=== PATIENT | male | born 2000 | race Caucasian/White ===

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

== ENCOUNTER 2020-07-19 16:45 | Observation (INO) ==
[2020-07-19] MEDS ORDERED: SODIUM CHLORIDE 0.9% 1000ML 1,000 ML IV SCH (17:30)
[2020-07-19] MEDS ORDERED: fentaNYL citrate 100 MCG/2 ML VIAL IV PRN ×2 (17:42→19:22)
[2020-07-19] MEDS ORDERED: ONDANSETRON INJ 2 MG/ML 2 ML VIAL IV STA (17:42)
--- NOTE | 2020-07-19 17:48 | Emergency Department Note ---
Impression & Plan Appendicitis, Acute abdominal pain in right lower quadrant ED Provider Note NAME: DOLORES CARDENAS AGE: 20 SEX: M : 2000 ARRIVES VIA: Walk-In INFORMANT: Patient, ED PROVIDER(S): Andre Maxwell DO CHIEF COMPLAINT: Right-sided abdominal pain HPI: The patient is a 20-year-old male who presented to the emergency department for an evaluation of right side abdominal pain. The patient started having right-sided abdominal pain over the course of the last week. The patient has been having intermittent symptoms over the last few months but his pain became constant over the last week. He now notices pain in the right lower quadrant. The patient was seen by his primary care physician and was set up for a CT the abdomen and pelvis. He was instructed to return to the emergency department because of an abnormal CT. The patient denies having any fever. He denies having any dysuria or frequency. He denies having any lower extremity swelling or pain. The patient denies having any fever. He is had no cough or recent t ravel. ROS: See above HPI for pertinent positives & negatives. A total of 10 systems reviewed and were otherwise negative. PAST MEDICAL HISTORY: See Below PAST SURGICAL HISTORY: See Below FAMILY HISTORY: See Below SOCIAL HISTORY: See Below HOME MEDICATIONS: See Below ALLERGIES: See Below VITALS: See Below PHYSICAL EXAMINATION: GENERAL: Patient is awake alert in no acute distress patient is resting comfortably and showing no signs of anxiety EYES: The conjunctivae are clear. The pupils are round and reactive. EARS, NOSE, MOUTH AND THROAT: The nose is without any evidence of any deformity. Mucous membranes are moist. Tongue is midline. NECK: The neck is nontender and supple. RESPIRATORY: Normal respiratory effort is noted there is no evidence of wheezing rhonchi or rales CARDIOVASCULAR: Regular rate and rhythm noted there no murmurs rubs or gallops normal S1 normal S2. GASTROINTESTINAL: The abdomen is mildly distended but soft. There is guarding in the right lower quadrant MUSCULOSKELETAL/EXTREMITIES: There is no evidence of gross deformity full range of motion is noted in the hips and shoulders. SKIN: There is no obvious evidence of any rash. There are no petechiae, pallor or cyanosis noted. NEUROLOGIC: Patient is awake alert and oriented x3. MEDICAL DECISION MAKING: The patient is a 20-year-old male who presented to the emergency department for an evaluation of abdominal pain. Patient was having right-sided abdominal pain over the last few days. He does have some chronic lower abdominal pain however this appears to be worse in location as well as duration according the patient. For this reason he saw his primary care physician and was sent for a CT of the abdomen and pelvis. The CT appeared to be consistent with acute appendicitis so he was sent to the emergency department for further evaluation. I did review the patient's CT. The CT was suggestive of acute appendicitis however on physical exam he did have guarding in the right lower quadrant. He did not have a fever or an elevated white blood cell count however because of his clinical findings as well as his radiographic findings I discussed his case with the on- call general surgeon. He was evaluated in the emergency department by the general surgeon. He was treated with IV fluids and IV pain medication by myself. He was feeling much better on subsequent reevaluation. Triage Nursing notes reviewed. Prior medical records reviewed Vital Signs: reviewed and remarkable for elevated blood pressure. Differential diagnosis: Etiologies such as appendicitis, diverticulitis, obstruction, inflammatory bowel disease, renal colic, PUD, biliary pathology, pancreatitis, mesenteric ischemia, aortic pathology, infections, genitourinary, UTI, perforated viscus, as well as others were entertained. ER treatment provided: See below Diagnostics interpreted by me: ECG: none Cardiac Monitoring: An order was placed for continuous cardiac monitoring. The monitor shows a rate of 88 beats per minute with sinus rhythm. Laboratory studies: As stated above and show below. Imaging studies: See below Consultation(s): 1740: The case was discussed with Dr. Burgess who is on-call for general surgery. Past Med/Surg History Medical History Acid reflux Hidradenitis suppurativa Lower abdominal pain Nausea Surgical History No pertinent past surgical history Family History Mother Dyslipidemia GERD (gastroesophageal reflux disease) Deafness in left ear Father GERD (gastroesophageal reflux disease) Diabetes Grandfather Diabetes Sister Raynauds syndrome Scoliosis Grandmother Raynauds syndrome Family/Other Breast cancer Grandfather Myocardial infarction Other Kidney stone Social History Smoking Status: Never smoker Second Hand Exposure: No; Do You Dip or Chew Tobacco: No; Tobacco Cessation Education Requested by Patient: No Hx Alcohol Use: Yes Alcohol type: beer, wine and hard liquor Hx Substance Use: No Preferred Language: Filipino Communication Ability: Effective Stripping Shovel Oiler Required: No Beliefs That Will Affect Care: None Current Living Situation: Family Other Information That Helps Us Care for You: No Feels Safe at Home: Yes Safety Concerns: Feels Safe At This Time Assistive Devices: Contacts Allergies Allergies Allergy/AdvReac Type Severity Reaction Status Date / Time No Known Allergies Allergy NKA Verified 07/18/20 09:35 Home Meds Home Medications Medication Instructions Recorded Confirmed loratadine 10 mg tablet 10 mg PO DAILY 06/25/19 07/19/20 Previous Rx's Medication Instructions Recorded pantoprazole 40 mg tablet,delayed 40 mg PO DAILY #90 tab 05/24/20 release Results & Data (ED) Vital Signs Vital Signs - 24 hr 07/19/20 16:47 07/19/20 17:53 07/19/20 18:25 Temperature 36.7 C Temperature Source Oral Pulse Rate 85 78 Pulse Rate [Apical] Pulse Rhythm [Apical] Pulse Strength [Apical] Respiratory Rate 18 22 Respiratory Effort / Characteristics Non-Labored Respiratory Depth Normal Respiratory Pattern Blood Pressure 153/94 H 160/108 H Blood Pressure [Left Arm] Blood Pressure Mean 113 114 Blood Pressure Mean [Left Arm] Blood Pressure Position [Left Arm] Pulse Oximetry 99 99 Oxygen Delivery Method Room Air Room Air Oxygen Flow Rate Sepsis Recent Fever Within 48 Hours No Sepsis New/Unexplained Change in Mental Status N/A Sepsis Action Taken by Nursing No Action Required 07/19/20 18:29 07/19/20 18:30 07/19/20 19:00 Temperature Temperature Source Pulse Rate 74 71 62 Pulse Rate [Apical] Pulse Rhythm [Apical] Pulse Strength [Apical] Respiratory Rate 20 16 22 Respiratory Effort / Characteristics Respiratory Depth Respiratory Pattern Blood Pressure 155/94 H 127/101 H Blood Pressure [Left Arm] Blood Pressure Mean 114 110 Blood Pressure Mean [Left Arm] Blood Pressure Position [Left Arm] Pulse Oximetry Oxygen Delivery Method Oxygen Flow Rate Sepsis Recent Fever Within 48 Hours Sepsis New/Unexplained Change in Mental Status Sepsis Action Taken by Nursing 07/19/20 19:26 07/19/20 21:14 07/19/20 21:20 Temperature 36.3 C L 36.4 C L Temperature Source Oral Temporal Artery Scan Pulse Rate Pulse Rate [Apical] 68 84 53 L Pulse Rhythm [Apical] Regular Regular Pulse Strength [Apical] Normal Respiratory Rate 18 17 17 Respiratory Effort / Characteristics Non-Labored Spontaneous Non-Labored Spontaneous Non-Labored Spontaneous Respiratory Depth Normal Normal Normal Respiratory Pattern Regular Blood Pressure Blood Pressure [Left Arm] 145/92 H 134/51 L 130/80 Blood Pressure Mean Blood Pressure Mean [Left Arm] 109 78 96 Blood Pressure Position [Left Arm] Semi-fowlers Lying Lying Pulse Oximetry 100 100 100 Oxygen Delivery Method Room Air Oxymask Oxymask Oxygen Flow Rate 6 6 Sepsis Recent Fever Within 48 Hours Sepsis New/Unexplained Change in Mental Status Sepsis Action Taken by Nursing 07/19/20 21:30 Temperature Temperature Source Pulse Rate Pulse Rate [Apical] 78 Pulse Rhythm [Apical] Regular Pulse Strength [Apical] Respiratory Rate 17 Respiratory Effort / Characteristics Non-Labored Spontaneous Respiratory Depth Normal Respiratory Pattern Blood Pressure Blood Pressure [Left Arm] 134/72 Blood Pressure Mean Blood Pressure Mean [Left Arm] 92 Blood Pressure Position [Left Arm] Lying Pulse Oximetry 100 Oxygen Delivery Method Nasal Cannula Oxygen Flow Rate 4 Sepsis Recent Fever Within 48 Hours Sepsis New/Unexplained Change in Mental Status Sepsis Action Taken by Detention Medications Current Medication List: was personally reviewed by me Laboratory Data Attestation: I reviewed the patient's lab results. Result diagrams: 07/19/20 15:40 07/19/20 15:40 Lab Results 07/19/20 07/19/20 07/19/20 Range/Units 15:40 15:40 15:40 WBC 9.88 (4.8-10.8) K/uL RBC 5.39 (4.7-6.1) M/uL Hgb 16.2 (14.0-18.0) g/dL Hct 47.3 (42-52) % MCV 87.8 (80-100) fL MCH 30.1 (25-34) pg MCHC 34.2 (32-36) g/dL RDW Std Deviation 44.7 (36.4-46.3) fL RDW Coeff of Laura 13.9 (11.5-14.5) % Plt Count 238 (130-400) K/uL MPV 11.3 H (7.4-10.4) fL Immature Gran % (Auto) 0.2 % Neut % (Auto) 69.5 % Lymph % (Auto) 21.4 % [place] % (Auto) 7.8 % Eos % (Auto) 0.8 % Baso % (Auto) 0.3 % Neut # (Auto) 6.87 H (1.4-6.5) K/uL Lymph # (Auto) 2.11 (1.2-3.4) K/uL [place] # (Auto) 0.77 H (0.11-0.59) K/uL Eos # (Auto) 0.08 (0-0.5) K/uL Baso # (Auto) 0.03 (0-0.2) K/uL Immature Gran # (Auto) 0.02 (0.00-0.02) K/uL ESR 11 (0-14) mm/hr Sodium 138 (136-145) mmol/L Potassium 4.0 (3.5-5.1) mmol/L Chloride 107 (98-107) mmol/L Carbon Dioxide 27 (21-32) mmol/L Anion Gap 4.0 (3-11) BUN 7 (7-18) mg/dl Creatinine 0.71 (0.6-1.4) mg/dl Est Cr Clr Drug Dosing 222.5 ml/min Est GFR ( Amer) > 150.0 Est GFR (Non-Af Amer) 134.1 BUN/Creatinine Ratio 9.8 L (10-20) Glucose 79 (70-99) mg/dl Calcium 9.5 (8.5-10.1) mg/dl Total Bilirubin 0.5 (0.2-1) mg/dl AST 29 (15-37) U/L ALT 88 H (12-78) U/L Alkaline Phosphatase 140 H (45-117) U/L C-Reactive Protein 2.02 H (0-0.29) mg/dl Total Protein 8.0 (6.4-8.2) gm/dl Albumin 3.9 (3.4-5.0) gm/dl Globulin 4.1 H (2.5-4.0) gm/dl Albumin/Globulin Ratio 1.0 (0.9-2) Lipase 68 L (73-393) U/L Urine Color Urine Appearance (Clear) Urine pH (4.5-7.5) Ur Specific [place] (1.000-1.030) Urine Protein (Negative) Urine Glucose (UA) (Negative) Urine Ketones (Negative) Urine Blood (Negative) Urine Nitrite (Negative) Urine Bilirubin (Negative) Urine Urobilinogen (Negative) Ur Leukocyte Esterase (Negative) COVID-19 Eval Order SARS-CoV-2, RNA, NAAT (NEGATIVE) 07/19/20 07/19/20 07/19/20 Range/Units 17:40 18:00 18:00 WBC (4.8-10.8) K/uL RBC (4.7-6.1) M/uL Hgb (14.0-18.0) g/dL Hct (42-52) % MCV (80-100) fL MCH (25-34) pg MCHC (32-36) g/dL RDW Std Deviation (36.4-46.3) fL RDW Coeff of Laura (11.5-14.5) % Plt Count (130-400) K/uL MPV (7.4-10.4) fL Immature Gran % (Auto) % Neut % (Auto) % Lymph % (Auto) % [place] % (Auto) % Eos % (Auto) % Baso % (Auto) % Neut # (Auto) (1.4-6.5) K/uL Lymph # (Auto) (1.2-3.4) K/uL [place] # (Auto) (0.11-0.59) K/uL Eos # (Auto) (0-0.5) K/uL Baso # (Auto) (0-0.2) K/uL Immature Gran # (Auto) (0.00-0.02) K/uL ESR (0-14) mm/hr Sodium (136-145) mmol/L Potassium (3.5-5.1) mmol/L Chloride (98-107) mmol/L Carbon Dioxide (21-32) mmol/L Anion Gap (3-11) BUN (7-18) mg/dl Creatinine (0.6-1.4) mg/dl Est Cr Clr Drug Dosing ml/min Est GFR ( Amer) Est GFR (Non-Af Amer) BUN/Creatinine Ratio (10-20) Glucose (70-99) mg/dl Calcium (8.5-10.1) mg/dl Total Bilirubin (0.2-1) mg/dl AST (15-37) U/L ALT (12-78) U/L Alkaline Phosphatase (45-117) U/L C-Reactive Protein (0-0.29) mg/dl Total Protein (6.4-8.2) gm/dl Albumin (3.4-5.0) gm/dl Globulin (2.5-4.0) gm/dl Albumin/Globulin Ratio (0.9-2) Lipase (73-393) U/L Urine Color Yellow Urine Appearance Clear (Clear) Urine pH 6.0 (4.5-7.5) Ur Specific [place] > 1.045 H (1.000-1.030) Urine Protein Negative (Negative) Urine Glucose (UA) Negative (Negative) Urine Ketones Negative (Negative) Urine Blood Negative (Negative) Urine Nitrite Negative (Negative) Urine Bilirubin Negative (Negative) Urine Urobilinogen Negative (Negative) Ur Leukocyte Esterase Negative (Negative) COVID-19 Eval Order Covid19 [facility]Now [facility] SARS-CoV-2, RNA, NAAT NEGATIVE (NEGATIVE) Administered Medications Morphine Sulfate (Morphine Sulfate 4 Mg/Ml 1 Ml Carp\Vial) 4 mg IV Q1H PRN PRN Reason: Pain Stop: 08/02/20 22:13 Last Admin: 07/19/20 22:49 Dose: 4 mg Documented by: [id number] Discontinued Medications Bupivacaine HCl (Bupivacaine 0.5 % 5 Mg/1 Ml Mpf 30ml Vial) Confirm Administered Dose 30 ml .ROUTE .STK-MED ONE Stop: 07/19/20 18:54 Last Admin: 07/19/20 20:45 Dose: 30 ml Documented by: [id number] Cefazolin Sodium (Cefazolin 250 Mg/Ml 1 Gm Vial) Confirm Administered Dose 1,000 mg .ROUTE .STK-MED ONE Stop: 07/19/20 18:54 Last Admin: 07/19/20 20:26 Dose: 1,000 mg Documented by: [id number] Fentanyl Citrate (Fentanyl Citrate 100 Mcg/2 Ml Vial) 50 mcg IV Q15M PRN PRN Reason: Pain Stop: 08/02/20 17:41 Last Admin: 07/19/20 18:03 Dose: 50 mcg Documented by: [id number] Heparin Sodium (Porcine) (Heparin (Porcine) 1000 Unit/Ml 10 Ml (Salt Operator Use Only)) Confirm Administered Dose 10,000 units .ROUTE .STK-MED ONE Stop: 07/19/20 18:54 Last Admin: 07/19/20 20:26 Dose: 5,000 units Documented by: [id number] Sodium Chloride (Nss 1000ml) 1,000 mls @ 999 mls/hr IV .Q1H1M EMERITA Stop: 07/19/20 18:30 Last Infusion: 07/19/20 19:10 Dose: 0 mls/hr Documented by: [id number] Admin: 07/19/20 18:03 Dose: 999 mls/hr Documented by: [id number] Cefoxitin Sodium (Mefoxin) 2,000 mg in 60 mls @ 100 mls/hr IV NOW STA Stop: 07/19/20 20:05 Last Infusion: 07/19/20 22:50 Dose: 0 mls/hr Documented by: [id number] Admin: 07/19/20 19:47 Dose: 100 mls/hr Documented by: [id number] Ondansetron HCl (Ondansetron Inj 2 Mg/Ml 2 Ml Vial) 4 mg IV NOW STA Stop: 07/19/20 17:43 Last Admin: 07/19/20 18:03 Dose: 4 mg Documented by: [id number] Ondansetron HCl (Ondansetron Inj 2 Mg/Ml 2 Ml Vial) 4 mg IV ONCE PRN PRN Reason: PACU Use Only-Nausea/Vomiting Stop: 07/20/20 03:22 Last Admin: 07/19/20 21:35 Dose: 4 mg Documented by: [id number] Ondansetron HCl (Ondansetron Inj 2 Mg/Ml 2 Ml Vial) Confirm Administered Dose 4 mg .ROUTE .STK-MED ONE Stop: 07/19/20 21:35 Last Admin: 07/19/20 22:50 Dose: Not Given Documented by: [id number] Blood Pressure Blood Pressure Findings: Elevated blood pressure Blood Pressure Disposition: did not require urgent referral Discharge Plan Visit Data Chief Complaint: Abnormal Labs/Diagnostic Testing Stated Complaint: ABNORMAL CT ED Provider: Andre Maxwell Discharge Problem: Appendicitis, Acute abdominal pain in right lower quadrant Patient Disposition: Being Evaluated by Surgeon Condition: Good Discharge Instructions Interventions: ED Discharge Assessment Last Done: 07/19/20 19:18
[2020-07-19 17:49] LABS: Basophils # (auto) 0.03 K/uL (0-0.2); Basophils % (auto) 0.3 %; Eosinophils # (auto) 0.08 K/uL (0-0.5); Eosinophils % (auto) 0.8 %; Hematocrit (blood only) 47.3 % (42-52); Hemoglobin 16.2 g/dL (14.0-18.0); Immature Granulocytes # (auto) 0.02 K/uL (0.00-0.02); Immature Granulocytes % (auto) 0.2 %; Lymphocytes # (auto) 2.11 K/uL (1.2-3.4); Lymphocytes % (auto) 21.4 %; Mean Corpuscular Hemoglobin 30.1 pg (25-34); Mean Corpuscular Hgb Conc 34.2 g/dL (32-36); Mean Corpuscular Volume 87.8 fL (80-100); Mean Platelet Volume 11.3 fL (7.4-10.4); Monocytes # (auto) 0.77 K/uL (0.11-0.59); Monocytes % (auto) 7.8 %; Neutrophils # (auto) 6.87 K/uL (1.4-6.5); Neutrophils % (auto) 69.5 %; Platelet Count 238 K/uL (130-400); RDW Coefficient of Variation 13.9 % (11.5-14.5); RDW Standard Deviation 44.7 fL (36.4-46.3); Red Blood Count 5.39 M/uL (4.7-6.1); White Blood Count 9.88 K/uL (4.8-10.8)
[2020-07-19 18:06] LABS: Alanine Aminotransferase 88 U/L (12-78); Albumin Level 3.9 gm/dl (3.4-5.0); Aspartate Aminotransferase 29 U/L (15-37); BUN Creatinine Ratio 9.8 (10-20); Blood Urea Nitrogen 7 mg/dl (7-18); Calcium 9.5 mg/dl (8.5-10.1); Carbon Dioxide 27 mmol/L (21-32); Chloride 107 mmol/L (98-107); Creatinine Clr Calc Pharmacy 222.5 ml/min; Est GFR (African American) > 150.0; Est GFR (Non-African American) 134.1; Glucose 79 mg/dl (70-99); Lipase 68 U/L (73-393); Sodium 138 mmol/L (136-145)
[2020-07-19 18:13] LABS: Alkaline Phosphatase 140 U/L (45-117); Bilirubin,Total 0.5 mg/dl (0.2-1); C Reactive Protein 2.02 mg/dl (0-0.29); Globulin 4.1 gm/dl (2.5-4.0)
[2020-07-19 18:34] LABS: Appearance Urine Clear (Clear); Bilirubin Urine Negative (Negative); Blood Urine Negative (Negative); Color Urine Yellow; Glucose Urine UA Negative (Negative); Ketones Urine Negative (Negative); Leukocyte Esterase Urine Negative (Negative); Nitrite Urine Negative (Negative); Protein Urine Negative (Negative); Specific Gravity Urine > 1.045 (1.000-1.030); Urobilinogen Urine Negative (Negative)
--- NOTE | 2020-07-19 18:51 | History & Physical Report ---
Date of Service July 19, 2020 Assessment & Plan (1) Appendicitis: This patient's history exam and CT scan of which I reviewed the images with the radiologist demonstrates acute appendicitis. He may have appendicolith. I recommended a laparoscopic appendectomy. I explained the possible need to convert to an open procedure. I explained the possible complications associated with the procedures. I answered his questions. His mother was also present during the entire visit I answered her questions. He has signed a consent form. History of Present Illness Chief Complaint: Right lower quadrant pain Primary Care Provider: Katheryn Hickman MD This is a 20-year-old male who was sent to the emergency room after he underwent an outpatient CT scan of the abdomen pelvis showing evidence of early appendicitis. The patient first had similar discomfort to what he is experiencing now a month ago. It was self-limited. Over the last month he has had similar discomfort about twice per week. It will last anywhere from 1 to 6 hours and then resolved. This present episode however began 4 days ago. It began in the lower abdomen in the midline and towards the right side. There was no pain in the left side. The discomfort is sharp when he moves. It does not radiate to his back. He has had intermittent nausea but no vomiting. He denies fever and chills. He is not had any change in his bowel habits. He denies melena hematochezia. He has had no dysuria or hematuria. He is never had previous abdominal surgery. Allergies Allergy/AdvReac Type Severity Reaction Status Date / Time No Known Allergies Allergy NKA Verified 07/18/20 09:35 Home Medications Home Medications Medication Instructions Recorded Confirmed Type loratadine 10 mg tablet 10 mg PO DAILY 06/25/19 07/18/20 History pantoprazole 40 mg tablet,delayed 40 mg PO DAILY #90 tab 05/24/20 07/18/20 Rx release Past Med/Surg History Medical History Acid reflux Hidradenitis suppurativa Lower abdominal pain Nausea Surgical History No pertinent past surgical history Family History Mother Dyslipidemia GERD (gastroesophageal reflux disease) Deafness in left ear Father GERD (gastroesophageal reflux disease) Diabetes Grandfather Diabetes Sister Raynauds syndrome Scoliosis Grandmother Raynauds syndrome Family/Other Breast cancer Grandfather Myocardial infarction Other Kidney stone Social History Smoking Status: Never smoker Preferred Language: Pashto Feels Safe at Home: Yes Review of Systems Review of Systems: All systems reviewed & are unremarkable except as noted in HPI & below Physical Exam Constitutional: no acute distress Respiratory: normal respiratory effort, lungs clear to auscultation Cardiovascular: Rate/Rhythm: regular rate and regular rhythm Gastrointestinal (Abdomen): Inspection/Auscultation: normal bowel sounds; abdomen not distended Percussion/Palpation: + abdomen tender (Right lower quadrant to moderate palpation) and abdomen soft Skin: no rashes, warm and dry Lymphatic: no cervical lymphadenopathy Results & Data Results & Data ([facility]) Vital Signs (Past 12 Hours) Vital Signs Temp Pulse Resp BP Pulse Ox 07/19/20 17:53 99 07/19/20 16:47 36.7 C 85 18 153/94 H 99 Laboratory Results 07/19/20 07/19/20 07/19/20 Range/Units 18:00 18:00 17:40 WBC (4.8-10.8) K/uL RBC (4.7-6.1) M/uL Hgb (14.0-18.0) g/dL Hct (42-52) % MCV (80-100) fL MCH (25-34) pg MCHC (32-36) g/dL RDW Std Deviation (36.4-46.3) fL RDW Coeff of Laura (11.5-14.5) % Plt Count (130-400) K/uL MPV (7.4-10.4) fL Immature Gran % (Auto) % Neut % (Auto) % Lymph % (Auto) % [place] % (Auto) % Eos % (Auto) % Baso % (Auto) % Neut # (Auto) (1.4-6.5) K/uL Lymph # (Auto) (1.2-3.4) K/uL [place] # (Auto) (0.11-0.59) K/uL Eos # (Auto) (0-0.5) K/uL Baso # (Auto) (0-0.2) K/uL Immature Gran # (Auto) (0.00-0.02) K/uL ESR (0-14) mm/hr Sodium (136-145) mmol/L Potassium (3.5-5.1) mmol/L Chloride (98-107) mmol/L Carbon Dioxide (21-32) mmol/L Anion Gap (3-11) BUN (7-18) mg/dl Creatinine (0.6-1.4) mg/dl Est Cr Clr Drug Dosing ml/min Est GFR ( Amer) Est GFR (Non-Af Amer) BUN/Creatinine Ratio (10-20) Glucose (70-99) mg/dl Calcium (8.5-10.1) mg/dl Total Bilirubin (0.2-1) mg/dl AST (15-37) U/L ALT (12-78) U/L Alkaline Phosphatase (45-117) U/L C-Reactive Protein (0-0.29) mg/dl Total Protein (6.4-8.2) gm/dl Albumin (3.4-5.0) gm/dl Globulin (2.5-4.0) gm/dl Albumin/Globulin Ratio (0.9-2) Lipase (73-393) U/L Urine Color Yellow Urine Appearance Clear (Clear) Urine pH 6.0 (4.5-7.5) Ur Specific [place] > 1.045 H (1.000-1.030) Urine Protein Negative (Negative) Urine Glucose (UA) Negative (Negative) Urine Ketones Negative (Negative) Urine Blood Negative (Negative) Urine Nitrite Negative (Negative) Urine Bilirubin Negative (Negative) Urine Urobilinogen Negative (Negative) Ur Leukocyte Esterase Negative (Negative) COVID-19 Eval Order Covid19 [facility] SARS-CoV-2, RNA, NAAT NEGATIVE (NEGATIVE) 07/19/20 07/19/20 07/19/20 Range/Units 15:40 15:40 15:40 WBC 9.88 (4.8-10.8) K/uL RBC 5.39 (4.7-6.1) M/uL Hgb 16.2 (14.0-18.0) g/dL Hct 47.3 (42-52) % MCV 87.8 (80-100) fL MCH 30.1 (25-34) pg MCHC 34.2 (32-36) g/dL RDW Std Deviation 44.7 (36.4-46.3) fL RDW Coeff of Laura 13.9 (11.5-14.5) % Plt Count 238 (130-400) K/uL MPV 11.3 H (7.4-10.4) fL Immature Gran % (Auto) 0.2 % Neut % (Auto) 69.5 % Lymph % (Auto) 21.4 % [place] % (Auto) 7.8 % Eos % (Auto) 0.8 % Baso % (Auto) 0.3 % Neut # (Auto) 6.87 H (1.4-6.5) K/uL Lymph # (Auto) 2.11 (1.2-3.4) K/uL [place] # (Auto) 0.77 H (0.11-0.59) K/uL Eos # (Auto) 0.08 (0-0.5) K/uL Baso # (Auto) 0.03 (0-0.2) K/uL Immature Gran # (Auto) 0.02 (0.00-0.02) K/uL ESR 11 (0-14) mm/hr Sodium 138 (136-145) mmol/L Potassium 4.0 (3.5-5.1) mmol/L Chloride 107 (98-107) mmol/L Carbon Dioxide 27 (21-32) mmol/L Anion Gap 4.0 (3-11) BUN 7 (7-18) mg/dl Creatinine 0.71 (0.6-1.4) mg/dl Est Cr Clr Drug Dosing 222.5 ml/min Est GFR ( Amer) > 150.0 Est GFR (Non-Af Amer) 134.1 BUN/Creatinine Ratio 9.8 L (10-20) Glucose 79 (70-99) mg/dl Calcium 9.5 (8.5-10.1) mg/dl Total Bilirubin 0.5 (0.2-1) mg/dl AST 29 (15-37) U/L ALT 88 H (12-78) U/L Alkaline Phosphatase 140 H (45-117) U/L C-Reactive Protein 2.02 H (0-0.29) mg/dl Total Protein 8.0 (6.4-8.2) gm/dl Albumin 3.9 (3.4-5.0) gm/dl Globulin 4.1 H (2.5-4.0) gm/dl Albumin/Globulin Ratio 1.0 (0.9-2) Lipase 68 L (73-393) U/L Urine Color Urine Appearance (Clear) Urine pH (4.5-7.5) Ur Specific [place] (1.000-1.030) Urine Protein (Negative) Urine Glucose (UA) (Negative) Urine Ketones (Negative) Urine Blood (Negative) Urine Nitrite (Negative) Urine Bilirubin (Negative) Urine Urobilinogen (Negative) Ur Leukocyte Esterase (Negative) COVID-19 Eval Order SARS-CoV-2, RNA, NAAT (NEGATIVE) Diagnostic Findings CT OF THE ABDOMEN AND PELVIS WITH CONTRAST CLINICAL HISTORY: R10.30 - Lower abdominal pain, unspecified COMPARISON STUDY: CT of the abdomen and pelvis December 26, 2018. TECHNIQUE: Following IV administration of 92 mL of Optiray-320, axial images of the abdomen and pelvis were obtained from the lung bases to the proximal femurs. Images were reviewed in the axial, sagittal, and coronal planes. IV contrast was administered without complication. Automated exposure control was utilized for the study. A dose lowering technique was utilized adhering to the principles of ALARA. Oral contrast was administered. CT DOSE: 1149.95 mGycm FINDINGS: Lung bases are unremarkable. No pneumatosis, free air or portal venous gas is present. The liver, spleen, adrenal glands and pancreas are unremarkable. A few subcentimeter right renal lesions are too small to characterize. There is no hydronephrosis. There is no evidence for a bowel obstruction. The caliber and wall thickness of small and large bowel are normal. The appendix is mildly dilated, measuring 8 mm in caliber. There is a small amount of gas within the appendix. Hyperdense material within the appendix was present on prior exam and therefore may reflect appendicoliths. Alternatively, this could reflect oral contrast. There is no periappendiceal infiltration. There is no free air or abscess. There is no evidence for a bowel obstruction. There is no lymphadenopathy. Major vasculature is patent. IMPRESSION: Mild appendiceal dilatation, new since prior exam. Hyperdensities within the appendix were present on prior exam and therefore favor appendicoliths. Early acute appendicitis cannot be excluded. If clinical scenario suggestive of acute appendicitis, surgical consultation is recommended. Otherwise, short-term follow-up CT could be obtained as indicated. This finding will be called/faxed to the ordering provider at time of dictation.
[2020-07-19] MEDS ORDERED: HEPARIN (PORCINE) 1000 UNIT/ML 10 ML (CATH LAB USE ONLY) ONE (18:53)
[2020-07-19] MEDS ORDERED: BUPIVACAINE 0.5 % 5 MG/1 ML MPF 30ML VIAL ONE (18:53)
[2020-07-19] MEDS ORDERED: CEFAZOLIN 250 MG/ML 1 GM VIAL ONE (18:53)
[2020-07-19] MEDS ORDERED: ROCURONIUM BROMIDE 10 MG/ML 5 ML VIAL IV ONE (19:00)
[2020-07-19] MEDS ORDERED: LIDOCAINE HCL 2% 2 ML VIAL/AMP(20MG/ML) INFIL ONE (19:00)
[2020-07-19] MEDS ORDERED: PROPOFOL IV EMULSION 10 MG/ML 20 ML VIAL IV ONE (19:00)
[2020-07-19] MEDS ORDERED: ONDANSETRON INJ 2 MG/ML 2 ML VIAL ONE ×2 (19:00→21:34)
[2020-07-19] MEDS ORDERED: NEOSTIGMINE METHYLSULFATE 5 MG/5 ML SYR ONE (19:00)
[2020-07-19] MEDS ORDERED: GLYCOPYRROLATE 0.2 MG/ML VIAL ONE (19:00)
[2020-07-19] MEDS ORDERED: fentaNYL citrate 100 MCG/2 ML VIAL ONE (19:12)
[2020-07-19] MEDS ORDERED: MIDAZOLAM HCL 1 MG/ML 2ML VIAL ONE (19:12)
[2020-07-19] MEDS ORDERED: DEXAMETHASONE SOD INJ 4 MG/ML VIAL ONE (19:13)
[2020-07-19] MEDS ORDERED: ePHEDrine sulfate 50 MG/ML AMP IV PRN (19:22)
[2020-07-19] MEDS ORDERED: ATROPINE SULFATE 0.1 MG/ML 10ML SYR IV PRN (19:22)
[2020-07-19] MEDS ORDERED: ONDANSETRON INJ 2 MG/ML 2 ML VIAL IV PRN ×2 (19:22→22:14)
[2020-07-19] MEDS ORDERED: HYDROmorphone INJ 1 MG/ML SYRINGE IV PRN (19:22)
--- NOTE | 2020-07-19 19:24 | Anesthesiology Consultation ---
Date of Service July 19, 2020 Assessment & Plan (1) Encounter for pre-operative examination: Chart Review Chart Review: Acceptable Risk for Surgery and Patient NOT seen in Pre Admission Testing Consults Requested none History Surgery Operation Date: 07/19/20 19:30 Proposed Procedures p Laparoscopic Appendectomy - Errol Burgess MD Height/Weight Height: 5 ft 10 in Weight: 129.5 kg Allergies Allergy/AdvReac Type Severity Reaction Status Date / Time No Known Allergies Allergy NKA Verified 07/18/20 09:35 Medications Home Medications Medication Instructions Recorded Confirmed Last Taken loratadine 10 mg tablet 10 mg PO DAILY 06/25/19 07/19/20 Unknown pantoprazole 40 mg tablet,delayed 40 mg PO DAILY #90 tab 05/24/20 07/19/20 Unknown release Active Medications Generic Name Dose Route Start Last Admin Trade Name Freq PRN Reason Stop Dose Admin Fentanyl Citrate 50 mcg 07/19/20 17:42 07/19/20 18:03 Fentanyl Citrate 100 Mcg/2 Ml Vial IV 08/02/20 17:41 50 mcg Q15M PRN Administration Pain Past Medical History Medical History Acid reflux Hidradenitis suppurativa Lower abdominal pain Nausea Exercise / Class Metabolic Activity II 4-5 Yardwork/Stairs/Walk up hill Past Family History Family History Mother Dyslipidemia GERD (gastroesophageal reflux disease) Deafness in left ear Father GERD (gastroesophageal reflux disease) Diabetes Grandfather Diabetes Sister Raynauds syndrome Scoliosis Grandmother Raynauds syndrome Family/Other Breast cancer Grandfather Myocardial infarction Other Kidney stone Past Surgical History Surgical History No pertinent past surgical history Past Anesthesia History No Hx of Anesthesia Complications and No Family Hx of Anesthesia Complications History of PONV No Hx of PONV and No Hx of Motion Sickness Social History Smoking Status: Never smoker Do You Dip or Chew Tobacco: No Hx Substance Use: No Physical Exam Vital Signs Last Vital Signs Temp 36.7 C 07/19/20 16:47 Pulse 62 07/19/20 19:00 Resp 22 07/19/20 19:00 BP 127/101 H 07/19/20 19:00 Pulse Ox 99 07/19/20 17:53 Testing Laboratory Results 07/19/20 15:40 07/19/20 15:40 Urine Color Yellow 07/19/20 17:40 Urine Appearance Clear (Clear) 07/19/20 17:40 Urine pH 6.0 (4.5-7.5) 07/19/20 17:40 Ur Specific [place] > 1.045 (1.000-1.030) H 07/19/20 17:40 Urine Protein Negative (Negative) 07/19/20 17:40 Urine Glucose (UA) Negative (Negative) 07/19/20 17:40 Urine Ketones Negative (Negative) 07/19/20 17:40 Urine Nitrite Negative (Negative) 07/19/20 17:40 Ur Leukocyte Esterase Negative (Negative) 07/19/20 17:40
[2020-07-19] MEDS ORDERED: cefOXitin 2,000 MG/60 ML BAG IV STA (19:30)
--- NOTE | 2020-07-19 20:55 | Post Operative Brief Note ---
Immediate Post Op Note v1 Date of Surgery July 19, 2020 Pre & Post Diagnosis Operation Date: 07/19/20 19:30 Pre-Op Diagnosis: Appendicitis Post-Op Diagnosis: Appendicitis I identified the patient and participated in the time-out.: Yes Procedure Operation Date: 07/19/20 19:30 Actual Procedures p Laparoscopic Appendectomy(Not Applicable) - Errol Burgess MD Surgeon Errol Burgess MD Client Server Developer None Estimated Blood Loss 4 Findings Consistent with Post-Op Diagnosis Drains Brown Catheter
--- NOTE | 2020-07-19 21:41 | Anesthesiology Progress Note ---
Date of Service July 19, 2020 Anesthesia Post Procedure Vital Signs Vital Signs: Temp Pulse Pulse Resp BP BP Pulse Ox 07/19/20 21:40 55 L 17 141/81 H 100 07/19/20 21:30 78 17 134/72 100 07/19/20 21:20 53 L 17 130/80 100 07/19/20 21:14 36.4 C L 84 17 134/51 L 100 07/19/20 19:26 36.3 C L 68 18 145/92 H 100 07/19/20 19:00 62 22 127/101 H 07/19/20 18:30 71 16 155/94 H 07/19/20 18:29 74 20 07/19/20 18:25 78 22 160/108 H 07/19/20 17:53 99 07/19/20 16:47 36.7 C 85 18 153/94 H 99 Transfer of Care Handoff Completed per policy Notes Mental Status: alert / awake / arousable and participated in evaluation Patient Amnestic to Procedure: Yes Nausea / Vomiting: adequately controlled Pain: adequately controlled Airway Patency, RR, SpO2: stable & adequate BP & HR: stable & adequate Hydration State: stable & adequate Anesthetic Complications: no major complications apparent and Pt Satisfied with anesthetic care
[2020-07-19] MEDS: MoRPHine SULFATE 4 MG/ML 1 ML CARP\\VIAL IV PRN (22:49)
[2020-07-19] MEDS: D5W AND 1/2NSS + 20MEQ KCL 20 MEQ/1,000 ML BAG IV SCH (23:39)
[2020-07-20] MEDS ORDERED: METOCLOPRAMIDE HCL INJ 5 MG/ML 2 ML VIAL IV PRN (00:36)
--- NOTE | 2020-07-20 04:09 | Operative Report (OR) ---
DATE OF OPERATION: 07/19/2020 PREOPERATIVE DIAGNOSIS: Appendicitis. POSTOPERATIVE DIAGNOSIS: Appendicitis. PROCEDURE: Laparoscopic appendectomy. SURGEON: Errol Burgess MD FINDINGS: The appendix was dilated and firm all but for the proximal 1-2 cm. The base of the appendix was normal as was the cecum. There was very little inflammatory change, however. There was no evidence of abscess or perforation. The visible bowel appeared normal. TECHNIQUE: The patient was given a general anesthetic and the area was prepped and draped in the usual sterile fashion. Skin and subcutaneous tissue inferior to the umbilicus was anesthetized with 1% Xylocaine with epinephrine. Skin incision was made and was carried down through the subcutaneous tissue to the fascia which was grasped with 2 Erika clamps and incised between. The peritoneum was identified, incised, and the introducer was placed bluntly. The abdomen was then insufflated to a pressure of 15 mmHg with carbon dioxide. A lower midline introducer site was chosen. Skin was anesthetized with the same local. Skin incision was made and the introducer was placed under direct vision. The traction was placed superiorly and medially on the cecum and the appendix was easily identified. The left lower quadrant introducer was placed. A site was chosen and the skin and subcutaneous tissue were anesthetized. A skin incision was made and the introducer was placed under direct vision. Traction was placed anteriorly on the appendix. There was easy establishment of a plane between the base of the appendix and the mesoappendix and the mesoappendix was divided using the Endo-MAYUR stapler. That helped me confirm the fact that I was at the base of the appendix. The appendix was then amputated with the Endo-MAYUR stapler. The appendix was placed into an Endobag and brought out through the left lower quadrant introducer site with ease. That introducer was replaced. The right lower quadrant was irrigated and the irrigation was removed. There was a tiny amount of oozing from the cecal staple line that was easily controlled with minimal cautery. There was no further oozing. The mesentery of the appendix staple line was inspected and there was no bleeding. Gas was allowed to escape and the introducers were removed. The fascia of the umbilical introducer site was closed with interrupted 0 Vicryl and the skin of all the incisions was closed with 4-0 Monocryl in either an interrupted or running subcuticular fashion. The skin was further anesthetized. The skin was cleansed, dried, benzoin placed, Steri-Strips applied. The estimated blood loss was 4 mL. Sponge, needle and instrument counts were correct prior to closure. The patient tolerated the surgical procedure without complication and was transferred to recovery. I attest to the content of the Intraoperative Record and any orders documented therein. Any exception s are noted below.
[2020-07-20] MEDS: PANTOprazole 40 MG TAB PO SCH (08:38)
[2020-07-20] MEDS: OXYCODONE/ACETAMINOPHEN 5mg/325mg TAB PO PRN ×2 (08:41→12:57)
[2020-07-20] MEDS: D5W AND 1/2NSS + 20MEQ KCL 20 MEQ/1,000 ML BAG IV SCH ×2 (09:40→19:57)
[2020-07-20] MEDS: MoRPHine SULFATE 4 MG/ML 1 ML CARP\\VIAL IV PRN (10:31)
--- NOTE | 2020-07-20 10:36 | Surgery Progress Note ---
Date of Service July 20, 2020 Assessment & Plan (1) Appendicitis: Postoperative day #1 status post laparoscopic appendectomy Patient is doing well To discharge to home Discussed postoperative activity restrictions Follow-up in 2 weeks Admission and Anticipated Discharge Date Admission Date: July 19, 2020 Subjective Postoperative day #1 status post laparoscopic appendectomy Having incisional pain only Tolerating regular diet Denies nausea and vomiting. Physical Exam Constitutional: no acute distress Neck: trachea midline Respiratory: normal respiratory effort, lungs clear to auscultation Cardiovascular: Rate/Rhythm: regular rate and regular rhythm Gastrointestinal (Abdomen): Inspection/Auscultation: + abdominal surgical incision (All are clean, dry and intact); abdomen not distended Percussion/Palpation: + abdomen tender (Incisional only) and abdomen soft Results & Data ([facility]) Vital Signs (Past 12 Hours) Vital Signs Temp Pulse Resp BP Pulse Ox 07/20/20 07:36 36.6 C 75 16 138/71 97 07/20/20 05:10 36.5 C 73 16 148/84 H 98 07/20/20 01:21 36.4 C L 85 16 160/91 H 95 07/20/20 00:10 36.5 C 94 H 16 128/85 97 07/19/20 23:14 36.6 C 78 16 152/84 H 98 07/19/20 22:40 35.7 C L 64 19 132/85 98 (1) Appendicitis Acute appendicitis type: with localized peritonitis Appendicitis abscess presence: without abscess Appendicitis gangrene presence: without gangrene Appendicitis perforation presence: without perforation Appendicitis type: acute appendicitis Qualified Code(s): K35.30 - Acute appendicitis with localized peritonitis, without perforation or gangrene
--- NOTE | 2020-07-20 10:41 | Discharge Summary ---
Date of Service July 20, 2020 Admission HPI Per Admitting Provider This is a 20-year-old male who was sent to the emergency room after he underwent an outpatient CT scan of the abdomen pelvis showing evidence of early appendicitis. The patient first had similar discomfort to what he is experiencing now a month ago. It was self-limited. Over the last month he has had similar discomfort about twice per week. It will last anywhere from 1 to 6 hours and then resolved. This present episode however began 4 days ago. It began in the lower abdomen in the midline and towards the right side. There was no pain in the left side. The discomfort is sharp when he moves. It does not radiate to his back. He has had intermittent nausea but no vomiting. He denies fever and chills. He is not had any change in his bowel habits. He denies melena hematochezia. He has had no dysuria or hematuria. He is never had previous abdominal surgery. Admission Exam Per Admitting Provider Constitutional: no acute distress Respiratory: normal respiratory effort, lungs clear to auscultation Cardiovascular: Rate/Rhythm: regular rate and regular rhythm Gastrointestinal (Abdomen): Inspection/Auscultation: normal bowel sounds; abdomen not distended Percussion/Palpation: + abdomen tender (Right lower quadrant to moderate palpation) and abdomen soft Skin: no rashes, warm and dry Lymphatic: no cervical lymphadenopathy Principal Diagnosis Acute appendicitis Discharge Exam Constitutional: no acute distress Neck: trachea midline Respiratory: normal respiratory effort, lungs clear to auscultation Cardiovascular: Rate/Rhythm: regular rate and regular rhythm Gastrointestinal (Abdomen): Inspection/Auscultation: + abdominal surgical incision (All are clean, dry and intact); abdomen not distended Percussion/Palpation: + abdomen tender (Incisional only) and abdomen soft Discharge Data Allergies Allergy/AdvReac Type Severity Reaction Status Date / Time No Known Allergies Allergy NKA Verified 07/18/20 09:35 Procedures Performed Operation Date: 07/19/20 19:30 Actual Procedures p Laparoscopic Appendectomy(Not Applicable) - Errol Burgess MD Hospital Course (1) Appendicitis: The patient was taken to the operating room where an uncomplicated laparoscopic appendectomy was performed. Findings included distal dilatation of the appendix with normal base and cecum. No other abnormalities were identified. Estimated blood loss was 4 cc. On postoperative day #1 he was ambulating and tolerating a regular diet without nausea or vomiting. He had incisional tenderness only. There was no evidence of erythema of the incisions. Pathology is pending. Total Time Total Time Spent Total Time Spent (In Minutes): 15 Discharge Plan Discharge Items Patient Disposition: Home - Self-Care Reason For Visit: ABNORMAL CT Discharge Diagnosis: Acute appendicitis Condition on Discharge: Good Activity: As commented below Non-emergency contact: Surgeon Call non-emergency contact if: your temperature is above 101.5, your wound has increased redness and your wound has increased drainage Follow-up/Referrals: Katheryn Hickman MD [Primary Care Provider] - Diet: Regular Addtl Attending Provider Instructions: Post-Surgical ~Discharge Instructions Activity Recommendations: - lifting limitation: (10 pounds for 2 weeks), - exercise/sex/sports limit: (nonstrenuous for 2 weeks), - driving or machine use limit: (none for 1 week), - Shower/bathe limit: (may shower beginning tomorrow) Diet: - Resume previous diet SPECIAL CARE INSTRUCTIONS: - May shower in 24 hours. Let water run over area and pat dry. - Leave steri strips on for one week. - Call the surgeon's office with any questions or concerns - - (ex. temperature higher than 101 degrees F, excessive bleeding or pain). MEDICATIONS: - Resume previous medications unless instructed otherwise by your surgeon. - Ibuprofen 600 mg every 6 hours with food - Percocet 1 every 4 hours, as needed for pain FOLLOW UP VISIT: - If not already scheduled, please call the office to schedule a two week follow-up appointment. Office number Pending Studies at Discharge: Yes Studies:: Pathology Stand-Alone Forms: [facility], Smoking Cessation Medications and DC Order Prescriptions: New oxycodone-acetaminophen [Percocet] 5-325 mg Tablet 1 tab PO Q4H PRN (Reason: pain) Qty: 5 RF: 0 Continued pantoprazole 40 mg tablet,delayed release (DR/EC) 40 mg PO DAILY Qty: 90 RF: 3 loratadine [Claritin] 10 mg tablet 10 mg PO DAILY RF: 0 Discharge Orders: Discharge Order (Routine); Ordered 07/20/20 Ordered By: Errol Burgess Admission Data Admit Date/Time: 07/19/20 21:35 Attending Provider: Errol Burgess Admit Provider: Errol Burgess Primary Care Provider: Katheryn Hickman
[2020-07-20] MEDS ORDERED: COUGH DROP (SUGAR FREE) LOZ 24 LOZ/1 BOX BUCCAL ONE (17:39)
[2020-07-20] MEDS: ACETAMINOPHEN 500 MG TAB PO PRN (19:01)
[2020-07-21] MEDS: D5W AND 1/2NSS + 20MEQ KCL 20 MEQ/1,000 ML BAG IV SCH (05:34)
[2020-07-21] MEDS: ACETAMINOPHEN 500 MG TAB PO PRN (07:56)
[2020-07-21] MEDS: PANTOprazole 40 MG TAB PO SCH (08:34)
--- NOTE | 2020-07-21 09:32 | Surgery Progress Note ---
Date of Service July 21, 2020 Assessment & Plan (1) Appendicitis: Feeling better today. Tolerating regular diet Passing flatus Can discharge to home today Reviewed postoperative activity restrictions and can follow-up in 2 weeks Admission and Anticipated Discharge Date Admission Date: July 19, 2020 Subjective I plan to send patient home yesterday but said he felt "weird" Feels better today Tolerating a regular diet twice without nausea or vomiting Passing flatus Abdominal discomfort is unchanged and mostly incisional Physical Exam Constitutional: no acute distress Gastrointestinal (Abdomen): Inspection/Auscultation: + abdominal surgical incision (Clean, dry and intact); abdomen not distended Percussion/Palpation: + abdomen tender (Mild incisional) and abdomen soft Results & Data ([facility]) Vital Signs (Past 12 Hours) Vital Signs Temp Pulse Resp BP Pulse Ox 07/21/20 07:36 36.8 C 58 L 18 118/67 97 07/20/20 23:45 130/74 07/20/20 22:45 37.0 C 71 18 178/74 H 97 (1) Appendicitis Acute appendicitis type: with localized peritonitis Appendicitis abscess presence: without abscess Appendicitis gangrene presence: without gangrene Appendicitis perforation presence: without perforation Appendicitis type: acute appendicitis Qualified Code(s): K35.30 - Acute appendicitis with localized peritonitis, without perforation or gangrene
[2020-07-26] MEDS ORDERED: INFLUENZA VIRUS QUAD VACCINE 0.5 ML SYR IM ONE (08:00)
[2020-07-26] MEDS ORDERED: INFLUENZA ADMINISTRATION CHARGE ONE (08:00)
== END 2020-07-21 14:46 | disposition home or self-care (01) ==
LOC: ED 16:45 → 3E 19:18 → OR 19:18
DX: E66.9 Obesity, unspecified; Z79.899 Other long term (current) drug therapy; Z68.41 Body mass index [BMI] 40.0-44.9, adult; K35.80 Unspecified acute appendicitis; K21.9 Gastro-esophageal reflux disease without esophagitis